=== PATIENT | male | born 1950 | race Caucasian/White ===

== ENCOUNTER 2024-08-06 07:57 | Day surgery (SDC) | payer MEDICARE, SELFPAY ==
[2024-08-04 13:31] VITALS: BMI 22.3
[2024-08-06] MEDS: LACTATED RINGERS 1000ML 1,000 ML 25 ML IV (08:15)
--- NOTE | 2024-08-06 08:17 | P.PNANES_ITS ---
[facility] Disclaimer: The information contained in this section may have been updated after the patient was seen, as this information can be updated by other users. Medical History Enlarged prostate Hx of tinnitus History of COVID-19 COPD (chronic obstructive pulmonary disease) Asthma History of gastroesophageal reflux (GERD) Hyperlipidemia Surgical History History of colonoscopy Family History (Updated 08/04/24 @ 13:30 by Briana Ann RN) Sister Breast cancer Mother Stroke Social History Smoking Status: Current every day smoker alcohol intake: never substance use type: denies use current occupational status: retired Travel in the last 8 weeks: None [facility] Anesthesia Checklist Patient Identification Patient Identification: Arm Band and Verbal (Name & ) Structural Data Admitted From: Home Planned Operative Procedure/s: Colonoscopy Consent for Planned Operative Procedure(s) Verified: Yes Verified Documents: Surgical Consent and History and Physical NPO Status Verified Time NPO: 05:00 Additional verifications Patient : No Anesthesia Reactions: No Cardiovascular Assessment Heart Sounds: S1 & S2 Pulse Rhythm: Irregular Peripheral Edema: No Airway Assessment Mallampati Score:: Class II C-Spine Mobility Assessed: Yes TMJ Mobility Assessed: Yes Dentition: Dentures-good fit (Upper & lower. Will be removed prior to procedure) Neurological Assessment Level of Consciousness: Awake, Alert, Appropriate and Follows Commands Hx Seizures: No Numbness or tingling in extremities: No Anesthesia Plan Anesthesia Risk discussed: Yes Anesthesia Plan: Verified ASA Class: III Anesthesia Type: MAC
[2024-08-06 08:21] VITALS: BP 138/79; PULSE 86; RESP 20; TEMP 36.5; O2SAT 94; BMI 22.3
[2024-08-06 09:34] VITALS: O2SAT 95
--- NOTE | 2024-08-06 09:34 | EXP.HP ---
History of Present Illness *Admission Date: 08/06/24 *Reason for visit:: Personal history of adenomatous colon polyps *History of present illness: Mr. Luke is a 74-year-old gentleman who is here for follow-up surveillance colonoscopy secondary to a personal history of adenomatous polyps. The examination is deemed medically necessary for surveillance colonoscopy. The patient has been seen, interviewed and examined prior to the procedure by both myself and the anesthesia provider. [facility] Disclaimer: The information contained in this section may have been updated after the patient was seen, as this information can be updated by other users. Medical History (Updated 08/06/24 @ 09:35 by Juwan Gaytan II, MD) Enlarged prostate Hx of tinnitus History of COVID-19 COPD (chronic obstructive pulmonary disease) Asthma History of gastroesophageal reflux (GERD) Hyperlipidemia Surgical History History of colonoscopy Family History Sister Breast cancer Mother Stroke Social History (Updated 08/06/24 @ 08:18 by Magui Camacho CRNA) Smoking Status: Current every day smoker alcohol intake: never substance use type: denies use current occupational status: retired Travel in the last 8 weeks: None Review of Systems Review of Systems Review of systems (narrative): Negative *Cardiovascular Comments: Negative *Gastrointestinal Comments: Negative *Genitourinary Comments: Negative *Musculoskeletal Comments: Negative *Neurologic Comments: Negative Meds Home Medications and Allergies Home Medications ?Medication ?Instructions ?Recorded ?Confirmed ?Type aspirin 81 mg capsule 81 mg PO DAILY 08/04/24 08/06/24 History fakpxca-[id number]-niud tablet 1 tab PO DAILY 08/04/24 08/06/24 History cetirizine 10 mg tablet (All Day 10 mg PO DAILY 08/04/24 08/06/24 History Allergy (cetirizine)) finasteride 5 mg tablet 5 mg PO DAILY 08/04/24 08/06/24 History rosuvastatin 20 mg tablet 20 mg PO DAILY 08/04/24 08/06/24 History tamsulosin 0.4 mg capsule 0.4 mg PO DAILY 08/04/24 08/06/24 History New Prescriptions to Start Prescriptions: Allergies Allergy/AdvReac Type Severity Reaction Status Date / Time No Known Allergies Allergy Verified 08/06/24 08:17 Exam Data for Last 24 hours Vital signs and Labs for Last 24 Hours: Temp Pulse Resp BP Pulse Ox O2 Del Method 97.7 F 86 20 138/79 94 L Room Air 08/06/24 08:21 08/06/24 08:21 08/06/24 08:21 08/06/24 08:21 08/06/24 08:21 08/06/24 08:21 I & O for Last 24 hours: Intake & Output 08/03/24 08/04/24 08/05/24 08/06/24 23:59 23:59 23:59 23:59 Weight 160 lb 160 lb *Routine HEENT Exam Head: Present normocephalic Eye: Present EOMI and PERRL ENT: Present mucous membranes moist *Routine Neck Exam Neck: Present supple *Routine Respiratory Exam Respiratory: Present CTA bilaterally *Routine Cardiovascular Exam Cardiovascular: Present RRR *Routine Abdominal Exam Abdominal: Present soft and normoactive bowel sounds; Absent tenderness *Routine Rectal Exam Rectal:: deferred *Routine Genitalia Exam Genitalia:: deferred *Routine Extremities Exam Extremities: Absent cyanosis, clubbing or edema *Routine Skin Exam Skin: Present warm; Absent rash *Routine Neurological Exam Neurological: Present alert and oriented X3 Assessment and Plan *Assessment and plan (1) Personal history of adenomatous and serrated colon polyps: Status: Acute Category: Medical Code(s): Z86.0101 - Personal history of adenomatous and serrated colon polyps Plan A/P: 1. Personal history of adenomatous colon polyps is the preprocedural diagnosis. The patient will be anesthetized/sedated using MAC sedation. The patient has been seen and examined. Cardiac and lung assessment prior to the examination is stable. Proceed with planned surveillance colonoscopy
--- NOTE | 2024-08-06 09:35 | HMH.PROCNOTE ---
[facility] Procedure Note Date: 08/06/24 Time: 09:54 Procedure Note:: Colonoscopy Procedure Report: Colonoscopy with cold snare polypectomy Endoscopist: Juwan Gaytan II, MD Referring physician: Steve Stoner M.D. Date of Procedure: August 06, 2024 Equipment: Olympus 190 variable stiffness pediatric colonoscope Sedation: MAC sedation Indication: Mr. Luke is a 74-year-old gentleman who is here for follow-up surveillance colonoscopy. The patient does have a personal history of adenomatous colon polyps. His last colonoscopy was 4-1/2 years ago and he has had adenomatous polyps on several prior colonoscopies. He reports some straining and obstipation. He has had hemorrhoid issues in the past. He does get some gas and occasional lower abdominal discomfort. This has been longstanding. He reports no rectal bleeding, weight loss or family history of colon cancer. Procedure: Prior to the procedure, a history and physical exam was performed, and patient's medications and allergies were reviewed. The risks, benefits and alternatives of the sedation and procedure were discussed with the patient. All questions were answered and informed consent was obtained. The patient was brought to the procedure room. Patient identification and proposed procedure were verified by the physician and the nurse. The patient was placed in a left lateral decubitus position and the scope was passed under direct vision. Throughout the procedure, the patient's blood pressure, pulse, and oxygen saturations were monitored continuously. The colonoscopy was accomplished without difficulty. The patient tolerated the procedure well. Findings: On digital rectal examination there was normal rectal tone. There were no external hemorrhoids. The prostate was 2+, smooth, soft, symmetric without nodules. The colonoscope was introduced through the anal canal to the rectum and advanced to the cecum. The ileocecal valve and appendiceal orifice were identified. The scope was advanced a short distance into the ileum which appeared grossly normal. The scope was then withdrawn into the colon. The cecum, ascending and transverse colon and mucosa were grossly normal. There were scattered diverticuli throughout the descending and sigmoid colon (LEFT colon). There were 3 diminutive (4, 4 and 5 mm) polyps in the rectosigmoid removed via cold snare polypectomy. The rectum itself was normal. Upon retroflexion within the rectum there were grade 1-2 internal hemorrhoids. The preparation was excellent throughout with [place] Preparation Score of 9. The cecal time was 12 minutes. Impression: 1. Diminutive rectosigmoid hyperplastic appearing polyps x 3 2. Mild left-sided diverticulosis 3. Grade 1-2 internal hemorrhoids Plan: I will follow-up the polyp histology. I am not convinced that he will require any further preventative colonoscopy. I would encourage psyllium fiber supplementation on a long-term daily maintenance basis.
[2024-08-06 09:58] VITALS: BP 100/54; PULSE 69; RESP 16; TEMP 36.3; O2SAT 96
[2024-08-06 10:08] VITALS: BP 98/59; PULSE 67; RESP 16; O2SAT 95
[2024-08-06 10:18] VITALS: BP 105/61; PULSE 71; RESP 16; O2SAT 96
[2024-08-06 10:28] VITALS: BP 124/78; PULSE 72; RESP 16; O2SAT 96
== END 2024-08-06 10:38 | disposition home or self-care (01) ==
PROVIDERS: PCP Internal Medicine; Visit Provider Internal Medicine Gastroenterology
PROC: (CPT 45385; principal; 2024-08-06 09:30)
DX: K63.5 Polyp of colon (principal); K57.30 Diverticulosis of large intestine without perforation or abscess without bleeding; K64.8 Other hemorrhoids; Z86.0101 Personal history of adenomatous and serrated colon polyps
CPT/HCPCS: 45385; 88305; J7120